=== PATIENT | female | born 1945 | race Caucasian/White ===

== ENCOUNTER 2017-09-10 14:24 | Emergency (ER) | payer MEDICARE, OTHER ==
[2017-09-10 14:57] VITALS: BP 137/74
--- NOTE | 2017-09-10 17:39 | UC ---
Tonya Garza Emily, scribed for Jaylan Gu MD on 09/10/17 at 1536 . Skin Complaint HPI - HPI Summary HPI Summary: This patient is a 72 year old F presenting to critical access hospital care with a chief complaint of pruritic rash on L forearm that began 09/07/2017. The patient rates the pain 0/10 in severity. Symptoms aggravated by Calamine and aloe. Symptoms alleviated by nothing. Patient reports drainage from rash. Patient denies fever and chills. Pt reports that she has recently been working outside. Allergies reviewed. Medications reviewed. - History of Current Complaint Chief Complaint: UCRash Time Seen by Provider: 09/10/17 15:27 Stated Complaint: RASH Hx Obtained From: Patient ?: No Onset/Duration: Sudden Onset, Lasting Days, Still Present Skin Exposure Onset/Duration: Days Ago Timing: Constant Onset Severity: Mild Current Severity: Mild Pain Intensity: 0 Pain Scale Used: 0-10 Numeric Location: Other - L forearm Character: Pruritus Aggravating Factor(s): Nothing Alleviating Factor(s): OTC Meds Associated Signs & Symptoms: Negative: Fever, Chills - Allergy/Home Medications Allergies/Adverse Reactions: Allergies Allergy/AdvReac Type Severity Reaction Status Date / Time prednisone Allergy Bleeding Verified 09/10/17 14:59 [email or web address] [From Chantix] Allergy GI Upset Verified 09/10/17 14:59 Review of Systems Constitutional: Other - Negative fever and chills Skin: Rash, Other - Positive drainage from rash All Other Systems Reviewed And Are Negative: Yes PMH/Surg Hx/FS Hx/Imm Hx Previously Healthy: No Endocrine History: Thyroid Disease Cardiovascular History: Hypertension - Surgical History Surgical History: Yes Surgery Procedure, Year, and Place: implanted lenses, bunionectomy - Family History Known Family History: Positive: Diabetes Negative: Cardiac Disease - Social History Occupation: Retired Lives: With Family Alcohol Use: Weekly Substance Use Type: None Smoking Status (MU): Former Smoker Type: Cigarettes Amount Used/How Often: 1/2 ppd Physical Exam - Summary Physical Exam Summary: General: well-appearing, no pain distress Skin: warm, dry. Two erythematous patches on the L arm. One is 15 cm by 6 cm on the forearm, with 5 mm scattered areas of scabbing, no vesicles, no streaking. 5 cm diameter patch on upper arm. Smaller areas of the same rash, 2 cm, on the R face and R forearmy Head: normal Eyes: EOMI, LA ENT: normal Neck: supple, nontender Respiratory: CTA, breath sounds present Cardiovascular: RRR Abdomen: soft, nontender Bowel: present Musculoskeletal: normal, strength/ROM intact Neurological: sensory/motor intact, A&O x3 Psychological: affect/mood appropriate Triage Information Reviewed: Yes Vital Signs: Initial Vital Signs Temp 97.6 F 09/10/17 14:52 Pulse 76 09/10/17 14:52 Resp 16 09/10/17 14:52 BP 137/74 09/10/17 14:52 Pulse Ox 99 09/10/17 14:52 Vital Signs Reviewed: Yes Course/Dx - Course Course Of Treatment: PROBABLE POISON ROBBIE/CONTACT DERMATITIS. WILL RX MEDROL DOSE PACK. RX KEFLEX FOR POSSIBLE CELLULITIC COMPONENT. F/U PMD; RECHECK SOONER IF WORSE. - Diagnoses Provider Diagnoses: RASH Discharge - Sign-Out/Discharge Documenting (check all that apply): Discharge/Admit/Transfer - Discharge Plan Condition: Stable Disposition: HOME Prescriptions: Cephalexin CAP* [Keflex CAP*] 500 mg PO QID #40 cap methylPREDNISolone [Medrol Dosepak 4 MG*] 4 mg PO .SEE JANINE INSTRUCTION #1 janine Patient Education Materials: Cellulitis (ED), Poison Robbie (ED), Acute Rash (ED) Referrals: Idania Cristobal MD [Primary Care Provider] - Additional Instructions: FOLLOW UP WITH YOUR DOCTOR IF NOT COMPLETELY IMPROVED. GET RECHECKED FOR ANY WORSENING OF YOUR CONDITION; PAIN, FEVER, YOU FEEL ILL OR QUESTIONS OR CONCERNS. - Billing Disposition and Condition Condition: STABLE Disposition: Home The documentation as recorded by the Tonya sifuentes Emily accurately reflects the service I personally performed and the decisions made by me, Jaylan Gu MD.
== END 2017-09-10 15:48 | disposition home or self-care (01) ==
LOC: UCEAST 14:24
DX: R21 Rash and other nonspecific skin eruption (principal); I10 Essential (primary) hypertension; Z88.8 Allergy status to other drugs, medicaments and biological substances
CPT/HCPCS: 99212; G0463

== ENCOUNTER 2021-08-31 13:31 | Inpatient (IN) ==
[2021-08-31] MEDS ORDERED: NS 0.9% 1000 ml BAG 1,000 ML IV ONE (13:45)
[2021-08-31 13:55] LABS: ABS Lymphocytes 1.5 10^3/ul (1.0-4.8); ABS Monocytes 0.5 10^3/ul (0-0.8); ABS Neutrophils 8.5 10^3/ul (1.5-7.7); Eosinophil % 0.3 %; Hematocrit 42 % (35-47); Hemoglobin 13.9 g/dL (12.0-16.0); Lymphocyte % 14.4 %; Mean Corpuscular HGB Conc 33 g/dL (31-36); Mean Corpuscular Hemoglobin 31 pg (27-31); Mean Corpuscular Volume 95 fL (80-97); Mean Platelet Volume 9.1 fL (7.4-10.4); Platelet Count 238 10^3/uL (150-450); Red Blood Count 4.43 10^6 /uL (3.70-4.87); Red Cell Distribution Width 14 % (10-15); White Blood Count 10.7 10^3/uL (3.5-10.8)
[2021-08-31 14:04] LABS: INR 0.98 (0.86-1.15)
[2021-08-31] MEDS ORDERED: Iohexol 350 (CONTRAST) 500 ML MDV IV ONE (14:04)
[2021-08-31 14:45] LABS: Albumin 4.4 g/dL (3.2-5.2); Albumin/Globulin Ratio 1.6 (1-3); Calcium 10.1 mg/dL (8.6-10.3); Globulin 2.8 g/dL (2-4); HDL Cholesterol 71.8 mg/dL; Potassium 4.7 mmol/L (3.5-5.0); Total Bilirubin 0.6 mg/dL (0.2-1.0); Total Protein 7.2 g/dL (6.4-8.9); eGFR CKD-EPI 38.4 (>60)
[2021-08-31] MEDS ORDERED: Heparin 5000 UNITS/ML 1 mL VIAL IV SCH (15:00)
[2021-08-31 15:28] LABS: High Sensitivity Troponin 1 Hr 344 pg/mL (<15)
[2021-08-31] MEDS: Heparin DRIP 25,000 UNITS BAG 25,000 UNITS/500 ML BAG IV SCH ×2 (15:36→22:46)
[2021-08-31 22:02] LABS: Vitamin B12 > 1450 pg/mL (180-914)
[2021-08-31 22:05] LABS: Vitamin D Total 25(OH) 53.4 ng/mL (20-50)
[2021-08-31 22:06] LABS: Blood Urea Nitrogen 28 mg/dL (6-24); eGFR CKD-EPI 43.6 (>60)
[2021-09-01 04:40] LABS: ABS Eosinophils 0.2 10^3/ul (0-0.6); ABS Lymphocytes 1.9 10^3/ul (1.0-4.8); ABS Monocytes 0.6 10^3/ul (0-0.8); ABS Neutrophils 4.1 10^3/ul (1.5-7.7); Eosinophil % 3.6 %; Hematocrit 35 % (35-47); Hemoglobin 11.8 g/dL (12.0-16.0); Mean Corpuscular HGB Conc 33 g/dL (31-36); Mean Corpuscular Hemoglobin 32 pg (27-31); Mean Corpuscular Volume 95 fL (80-97); Mean Platelet Volume 8.8 fL (7.4-10.4); Nucleated Red Blood Cells % 0.1; Platelet Count 183 10^3/uL (150-450); Red Blood Count 3.74 10^6 /uL (3.70-4.87); Red Cell Distribution Width 14 % (10-15); White Blood Count 6.9 10^3/uL (3.5-10.8)
[2021-09-01] MEDS: Heparin DRIP 25,000 UNITS BAG 25,000 UNITS/500 ML BAG IV SCH (05:30)
[2021-09-01 05:31] LABS: Potassium 3.8 mmol/L (3.5-5.0)
[2021-09-01 06:50] LABS: Calcium 8.6 mg/dL (8.6-10.3)
[2021-09-01 06:54] LABS: eGFR CKD-EPI 52.3 (>60)
[2021-09-01] MEDS: Cholecalciferol (VIT D3) 1,000 unit TAB PO SCH (10:01)
[2021-09-01] MEDS ORDERED: Gadobenate (CONTRAST) 529 MG/ML 10 ML SDV IV ONE (13:10)
[2021-09-01 15:56] LABS: High Sensitivity Troponin 1 Hr 109 pg/mL (<15)
[2021-09-02 03:16] LABS: ABS Eosinophils 0.2 10^3/ul (0-0.6); ABS Lymphocytes 1.7 10^3/ul (1.0-4.8); ABS Monocytes 0.6 10^3/ul (0-0.8); ABS Neutrophils 4.2 10^3/ul (1.5-7.7); Eosinophil % 3.4 %; Hematocrit 35 % (35-47); Hemoglobin 11.6 g/dL (12.0-16.0); Lymphocyte % 25.2 %; Mean Corpuscular HGB Conc 34 g/dL (31-36); Mean Corpuscular Hemoglobin 32 pg (27-31); Mean Corpuscular Volume 95 fL (80-97); Mean Platelet Volume 9.2 fL (7.4-10.4); Platelet Count 181 10^3/uL (150-450); Red Blood Count 3.64 10^6 /uL (3.70-4.87); Red Cell Distribution Width 14 % (10-15); White Blood Count 6.7 10^3/uL (3.5-10.8)
[2021-09-02 04:00] LABS: Calcium 8.7 mg/dL (8.6-10.3); Potassium 3.9 mmol/L (3.5-5.0)
[2021-09-02 04:05] LABS: eGFR CKD-EPI 68.6 (>60)
[2021-09-02] MEDS: Heparin DRIP 25,000 UNITS BAG 25,000 UNITS/500 ML BAG IV SCH (07:13)
[2021-09-02] MEDS: Cholecalciferol (VIT D3) 1,000 unit TAB PO SCH (07:50)
[2021-09-03 06:30] LABS: ABS Eosinophils 0.3 10^3/ul (0-0.6); ABS Lymphocytes 1.8 10^3/ul (1.0-4.8); ABS Monocytes 0.6 10^3/ul (0-0.8); Eosinophil % 3.7 %; Hematocrit 38 % (35-47); Hemoglobin 12.8 g/dL (12.0-16.0); Lymphocyte % 27.4 %; Mean Corpuscular HGB Conc 33 g/dL (31-36); Mean Corpuscular Hemoglobin 32 pg (27-31); Mean Corpuscular Volume 95 fL (80-97); Mean Platelet Volume 9.4 fL (7.4-10.4); Nucleated Red Blood Cells % 0.1; Platelet Count 192 10^3/uL (150-450); Red Blood Count 4.03 10^6 /uL (3.70-4.87); Red Cell Distribution Width 13 % (10-15); White Blood Count 6.8 10^3/uL (3.5-10.8)
[2021-09-03 07:07] LABS: Potassium 4.2 mmol/L (3.5-5.0); eGFR CKD-EPI 75.8 (>60)
[2021-09-03] MEDS: Cholecalciferol (VIT D3) 1,000 unit TAB PO SCH (08:31)
[2021-09-03] MEDS: Heparin DRIP 25,000 UNITS BAG 25,000 UNITS/500 ML BAG IV SCH (18:48)
[2021-09-04 06:19] LABS: ABS Eosinophils 0.3 10^3/ul (0-0.6); ABS Lymphocytes 1.6 10^3/ul (1.0-4.8); ABS Monocytes 0.5 10^3/ul (0-0.8); ABS Neutrophils 3.8 10^3/ul (1.5-7.7); Eosinophil % 4.3 %; Hematocrit 38 % (35-47); Lymphocyte % 25.6 %; Mean Corpuscular HGB Conc 34 g/dL (31-36); Mean Corpuscular Hemoglobin 32 pg (27-31); Mean Corpuscular Volume 94 fL (80-97); Mean Platelet Volume 9.3 fL (7.4-10.4); Platelet Count 214 10^3/uL (150-450); Red Blood Count 4.04 10^6 /uL (3.70-4.87); Red Cell Distribution Width 13 % (10-15); White Blood Count 6.2 10^3/uL (3.5-10.8)
[2021-09-04 06:36] LABS: eGFR CKD-EPI 74.7 (>60)
[2021-09-04] MEDS: Cholecalciferol (VIT D3) 1,000 unit TAB PO SCH (08:22)
[2021-09-04 11:42] VITALS: BP 125/66
== END 2021-09-04 14:00 | disposition home or self-care (01) | DRG 64 ==
LOC: ED 13:31 → EDHOLD 17:25 → MEDTELE 21:57
PROVIDERS: ADMIT Internal Medicine; ATTEND Internal Medicine